=== PATIENT | male | born 1990 | race Caucasian/White ===

== ENCOUNTER 2023-03-11 13:33 | Emergency (ER) | payer OTHER, SELFPAY ==
[2023-03-11 13:39] VITALS: BP 164/106; PULSE 110; RESP 18; TEMP 37.1; O2SAT 98; BMI 24.4
--- NOTE | 2023-03-11 14:00 | ED.GENADULT ---
HPI - General Adult General Chief complaint: Laceration/Wound Stated complaint: Laceration R arm Time Seen by Provider: 03/11/23 13:34 Source: patient Mode of arrival: ambulatory Limitations: no limitations History of Present Illness HPI narrative: 32-year-old male coming in today complaining of a laceration to the right arm. Patient was looking up cable in somebody's attic when his arm rubbed up against and old board. This occurred about an hour ago. He denies any other injuries. He states that his tetanus shot was updated 4 years ago. We have a record of this on the [facility], but the patient is quite certain that it is up-to-date. Related Data Home Medications Medication Instructions Recorded Confirmed amlodipine 10 mg tablet 10 mg PO DAILY 03/11/23 03/11/23 dextroamphetamine-amphetamine 5 mg 1 tab PO BID 03/11/23 03/11/23 tablet hydrochlorothiazide 12.5 mg capsule mg 03/11/23 Allergies Allergy/AdvReac Type Severity Reaction Status Date / Time No Known Drug Allergies Allergy Verified 03/11/23 13:38 Review of Systems Status of ROS: Reports: 6 or more systems reviewed and unremarkable except as noted in History and below PFSH PFSH Social History Smoking Status: Never smoker How often do you have a drink containing alcohol: 4 or more times a week How many standard drinks containing alcohol do you have on a typical day: 1 or 2 AUDIT-C Alcohol total score: 4 Non-prescribed substance use: denies use Exam Narrative: Exam Narrative: Anxious male. Patient has approximately a 1 cm laceration on the medial forearm on the right side in a V-shape. Laceration goes through the skin but not through the subcutaneous tissue. Const: Vital Signs, click to edit/add: Vital Signs - 24 hr 03/11/23 13:39 03/11/23 14:22 Temperature 98.7 F Pulse Rate [Pulse Oximeter] 110 H Respiratory Rate 18 Blood Pressure [Ri ght Upper Arm] 164/106 H 152/102 H Pulse Oximetry 98 Oxygen Delivery Me thod Room Air Course Course Hospital Course: Area was anesthetized with lidocaine. Wound was cleaned with wound cleanser and explored. Four sutures were placed with 3-0 Ethilon without difficulty. The patient did feel faint during the suturing, he was laid down while suturing finished and he felt better. Vital Signs Vital signs: Initial Vital Signs Temperature 98.7 F 03/11/23 13:39 Temperature Source Temporal Artery Scan 03/11/23 13:39 Pulse Rate 110 H 03/11/23 13:39 Respiratory Rate 18 03/11/23 13:39 Blood Pressure 164/106 H 03/11/23 13:39 Blood Pressure Mean 125 H 03/11/23 13:39 Pulse Oximetry 98 03/11/23 13:39 Oxygen Delivery Method Room Air 03/11/23 13:39 Vital Signs Temperature 98.7 F 03/11/23 13:39 Pulse Rate 110 H 03/11/23 13:39 Respiratory Rate 18 03/11/23 13:39 Blood Pressure 164/106 H 03/11/23 13:39 Pulse Oximetry 98 03/11/23 13:39 Oxygen Delivery Method Room Air 03/11/23 13:39 Temperature 98.7 F 03/11/23 13:39 Pulse Rate 110 H 03/11/23 13:39 Respiratory Rate 18 03/11/23 13:39 Blood Pressure 152/102 H 03/11/23 14:22 Pulse Oximetry 98 03/11/23 13:39 Oxygen Delivery Method Room Air 03/11/23 13:39 Medical Decision Making MDM Narrative Medical decision making narrative: Laceration to the right forearm. Sutured per above. We discussed wound hygiene, signs symptoms of infection, reasons to return to the ER, suture removal in about a week. Patient and significant other were agreeable and had no other questions. Discharge Plan Discharge Clinical Impression: Laceration Patient Disposition: Home, Self-Care Condition: Stable Additional Instructions: Keep wound clean and dry. Okay to shower as usual, pat dry after the shower and cover. Keep covered for the next 3-4 days until a scab has formed. Do not soak-avoid bathing or swimming. Suture removal in 7-10 days. Watch for signs of infection which would include redness of the area or drainage from the laceration. If this occurs follow-up with your doctor right away. Prescriptions: No Action amlodipine 10 mg tablet 10 mg PO DAILY hydrochlorothiazide 12.5 mg capsule Patient Comments: [NO ORIGINAL SIG] dextroamphetamine-amphetamine 5 mg tablet 1 tab PO BID Stand Alone Forms: [employer] Info Instructions
[2023-03-11 14:22] VITALS: BP 152/102
== END 2023-03-11 14:27 | disposition home or self-care (01) ==
LOC: ED 14:24
PROVIDERS: Emergency Provider Family Medicine
DX: S51.811A Laceration without foreign body of right forearm, initial encounter (principal); W26.9XXA Contact with unspecified sharp object(s), initial encounter
CPT/HCPCS: 12001; 99283; 99284